=== PATIENT | female | born 1965 | race Caucasian/White ===

== ENCOUNTER 2017-04-30 09:20 | Inpatient (IN) ==
[2017-04-30] MEDS ORDERED: CeFAZolin Syr 2,000MG/20 ML 2,000 MG/20 ML SYRINGE IVPB ONE (09:36)
[2017-04-30] MEDS ORDERED: Plasma-Lyte A (PH 7.4) 1,000 ML IVC SCH (09:45)
--- NOTE | 2017-04-30 09:45 | History & Physical Report ---
Date of Encounter: 04/30/17 Time of Encounter: 09:45 24 Hour HP Update - Instructions Instructions: If the History and Physical is less than 30 days old and was completed prior to A.M. admission and or procedure and has NOT been updated on calendar day of procedure please complete this update prior to performing procedure. - Update Patient reports changes in Medical Condition: No Changes in examination, assessment, or condition: No Changes in Medication: No Preop tests/diagnostics Reviewed: Yes Surgery Remains Indicated: Yes Consent for Planned Operative Procedure(s) Verified: Yes - Pre-Operative Checklist Preoperative Checklist Indicated: No Prophylactic Antibiotic Ordered: Yes Is VTE Prophylaxis Indicated?: Yes
[2017-04-30] MEDS ORDERED: Vancomycin 1,500 MG in D5% in Water 250 ML IVPB ONE (10:04)
[2017-04-30] MEDS ORDERED: *HR* HYDROmorphone (PF) 1 MG/ML SYRINGE IVP PRN (10:08)
[2017-04-30] MEDS ORDERED: *HR* Promethazine 25 MG/ML VIAL IVP PRN (10:08)
[2017-04-30] MEDS ORDERED: *HR* Labetalol 20 MG/4 ML SYRINGE IVP PRN (10:08)
[2017-04-30] MEDS ORDERED: *HR* Midazolam HCl 2 MG/2 ML VIAL ONE (10:15)
[2017-04-30] MEDS ORDERED: *HR* FentaNYL (PF) 100 MCG/2 ML VIAL ONE ×2 (10:15→12:48)
[2017-04-30] MEDS ORDERED: *HR* Propofol 200 MG/20 ML VIAL IVP ONE ×2 (10:16→13:05)
[2017-04-30] MEDS ORDERED: Dexamethasone 4 MG/ML VIAL ONE (10:18)
[2017-04-30] MEDS ORDERED: Ondansetron 4 MG/2 ML VIAL ONE ×2 (10:18→13:36)
--- NOTE | 2017-04-30 10:56 | Anesthesia Evaluation PreOp ---
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) Other Medical History: Hepatic (stone), Diabetes Type II, GERD Anesthesia History: No Prior Anesthetic Complications, Past Anesthesia ( hysterectomy, csection x 2) Alcohol Use: none Drug use: none Medications and Allergies BuPROPion SR (12 HR) [Wellbutrin SR] 300 mg PO DAILY 04/30/17 [History] Cholecalciferol (Vitamin D3) [Vitamin D3] 10,000 unit PO QWEEK 04/30/17 [History ] Cyclobenzaprine HCl 10 mg PO PRN PRN 04/30/17 [History] Duloxetine HCl [Cymbalta] 60 mg PO DAILY 04/30/17 [History] Empagliflozin [Jardiance] 10 mg PO DAILY 04/30/17 [History] HydrOXYzine SYP [Atarax] 10 mg PO BID 04/30/17 [History] Meloxicam [Mobic] 15 mg PO DAILY 04/30/17 [History] Metformin HCl [Glucophage] 1,000 mg PO DAILY 04/30/17 [History] Omeprazole Magnesium [Prilosec Otc] 20 mg PO DAILY 04/30/17 [History] Pregabalin [Lyrica] 100 mg PO BID 04/30/17 [History] Tramadol HCl [Ultram] 50 mg PO TID PRN 04/30/17 [History] Valsartan [Diovan] 80 mg PO DAILY 04/30/17 [History] 3 Allergy/AdvReac Type Severity Reaction Status Date / Time morphine Allergy Vomiting Verified 04/26/17 14:01 Sulfa (Sulfonamide Allergy Swelling Verified 04/26/17 14:00 Antibiotics) of Lip/Tongue/Throat codeine AdvReac Vomiting Verified 04/26/17 14:00 surgical tape Allergy Redness of Uncoded 04/26/17 14:00 Skin - Meds/Allergy Pre-op Review Medications Reviewed: Yes Allergies Reviewed: Yes Beta Blockers on Current Med List: No Anesthesia Results - Labs Laboratory Tests 04/26/17 04/26/17 04/26/17 14:32 14:33 14:34 WBC Hgb Hct Plt Count PT 10.9 INR 1.0 APTT 30.3 Sodium 140 Potassium 4.2 Chloride 105 Carbon Dioxide 29 BUN 20 Creatinine 0.81 Est Mean Plasma Glucose 131 Hemoglobin A1c 6.2 H 04/26/17 14:34 WBC 6.7 Hgb 14.7 Hct 47.2 H Plt Count 307 PT INR APTT Sodium Potassium Chloride Carbon Dioxide BUN Creatinine Est Mean Plasma Glucose Hemoglobin A1c - Imaging EKG: report reviewed (NSR) Anesthesia Exam O2 Sat Height 1.52 m Height 1.52 m Weight 95.254 kg Weight 95.254 kg O2 Sat by Pulse Oximetry 96 Vital Signs Temp Pulse Resp BP Pulse Ox 98.1 F 82 18 109/68 96 04/30/17 09:51 04/30/17 09:51 04/30/17 09:51 04/30/17 09:51 04/30/17 09:51 Blood glucose: 123 Height: 1.52m Weight: 95kg NPO (# of Hours): >8 - HEENT Pupil (Motor): Pupils equal, EOMI Teeth: Normal Oral Opening: Greater than 3 - ELECTRICAL CONTROLS DESIGNER LOC: Oriented ELECTRICAL CONTROLS DESIGNER Motor: Normal RUE, Normal LUE, Normal RLE, Normal LLE, Normal Face ELECTRICAL CONTROLS DESIGNER Sensory: Normal: RUE, LUE, RLE, LLE, Face - Cardiac Rhythm: Regular - Pulmonary Breath Sounds: bilateral Clear Respiratory Effort: Symmetrical Anesthesia Assess/Plan ASA Score: 3 Modified Janette Scale for Level of Consciousness: Cooperative, oriented, and tranquil Anesthetic Plan: General (r/b/a discussed, questions answered, consent obtained) , Regional (Femoral nn block) Monitoring Plan: Standard Monitors Recovery Plan: PACU
--- NOTE | 2017-04-30 11:05 | Discharge Summary ---
Date of Encounter: 05/02/17 Time of Encounter: 06:50 - Discharge Diagnosis (1) Hypertension Priority: Secondary Status: Chronic Qualifiers: Hypertension type: unspecified Qualified Code(s): I10 - Essential (primary ) hypertension (2) Hyperlipidemia Priority: Secondary Status: Chronic Qualifiers: Hyperlipidemia type: unspecified Qualified Code(s): E78.5 - Hyperlipidemia , unspecified (3) Diabetes type 2, controlled Priority: Secondary Status: Acute Qualifiers: Diabetes mellitus complication status: without complication Diabetes mellitus terminal makeup operator insulin use: unspecified terminal makeup operator insulin use status Qualified Code(s): E11.9 - Type 2 diabetes mellitus without complications (4) Morbid obesity with BMI of 40.0-44.9, adult Priority: Secondary Status: Chronic (5) Arthritis of left knee Priority: Primary Status: Chronic (6) Status post total left knee replacement Priority: Primary Status: Acute - Discharge Medications Home Medications: BuPROPion SR (12 HR) [Wellbutrin SR] 300 mg PO DAILY 04/30/17 [History] Cholecalciferol (Vitamin D3) [Vitamin D3] 10,000 unit PO QWEEK 04/30/17 [History ] Cyclobenzaprine HCl 10 mg PO PRN PRN 04/30/17 [History] Duloxetine HCl [Cymbalta] 60 mg PO DAILY 04/30/17 [History] Empagliflozin [Jardiance] 10 mg PO DAILY 04/30/17 [History] HydrOXYzine SYP [Atarax] 10 mg PO BID 04/30/17 [History] Meloxicam [Mobic] 15 mg PO DAILY 04/30/17 [History] Metformin HCl [Glucophage] 1,000 mg PO DAILY 04/30/17 [History] Omeprazole Magnesium [Prilosec Otc] 20 mg PO DAILY 04/30/17 [History] Pregabalin [Lyrica] 100 mg PO BID 04/30/17 [History] Tramadol HCl [Ultram] 50 mg PO TID PRN 04/30/17 [History] Valsartan [Diovan] 80 mg PO DAILY 04/30/17 [History] Allergies/Adverse Reactions: 3 Allergy/AdvReac Type Severity Reaction Status Date / Time morphine Allergy Vomiting Verified 05/01/17 17:09 Sulfa (Sulfonamide Allergy Swelling Verified 05/01/17 17:09 Antibiotics) of Lip/Tongue/Throat codeine AdvReac Vomiting Verified 05/01/17 17:09 surgical tape Allergy Redness of Uncoded 04/26/17 14:00 Skin Primary care physician: Nikole Trujillo MD - Patient Status Disposition: Transfer Inpatient Rehab Fac Condition: Good Functional capacity at discharge: uses cane/walker Overall status at discharge: patient is progressing back to baseline - Discharge Instructions Follow Up With: Nikole Trujillo MD [Primary Care Provider] - - Hospital Course Hospital course: Ms. Riddle is a 51 year old female Status post left total knee replacement. The patient had an uneventful postoperative course. They received antibiotics and physical therapy and were discharged in stable condition. There will follow -up in the office in 2 weeks. - Time Spent with Patient Total time spent providing and/or coordinating discharge services:
[2017-04-30] MEDS ORDERED: ROPIVACAINE HCL/PF 0.5% 30 ML VIAL ONE (11:20)
[2017-04-30] MEDS ORDERED: Bupivacaine/Clonidine Syringe 1 EACH SYRINGE ONE (11:20)
[2017-04-30] MEDS ORDERED: Ethanol\\Acetic Acid\\Na Ace\\Ben 1,000 ML IRRIG.SOLN IR ONE (11:33)
--- NOTE | 2017-04-30 12:11 | Anesthesia Procedures ---
Date of Encounter: 04/30/17 Time of Encounter: 12:08 Procedures: Anesthesia - Nerve Block Procedure Date: 04/30/17 Time: 12:08 Surgical Procedure: left knee total robotic Checklist: Correct Patient Identifier, Correct procedure, History checked Correct side: Left Monitor Applied: BP, Pulse Oximetry Sedation: Versed (mg): 2 Sedation: Fentanyl (mcg): 100 Indication: Post Op Analgesia Block Type: Femoral, Other (ipack) Catheter placed: Yes Sterile Technique: Yes Ultrasound used: Yes Anatomy identified: Yes Visual spread of Local: Yes Neuro Stimulation: No Nerve Stimulator Range: 0.2 - 0.4 mA Blood on Needle Aspiration: No Smooth Injection of Local: Yes Pain with Injection of Local: No Prep: Chlorhexadine Needle: 22 x 50 mm Stimuplex Local: 0.25% Bupivicaine w/Clonidine 20 mcg/cc (40ml ), Ropivacaine (30) Volume (cc): 70 Number of Attempts: 1 Complications: None/effective block Vitals: vss, block per request of surgeon.
--- NOTE | 2017-04-30 13:09 | Orthopedic Operative Note ---
Date of procedure: 04/30/17 Pre-op diagnosis: Left knee arthritis Post-op diagnosis: same Procedure: Procedure: Left Total knee replacement Estimated blood loss: 400 cc Hardware: Metal and polyethylene replacement. Arthrex Femur: 4 Tibia: 3 PS insert: 14 Patella: 34 Exam Under anesthesia: Full flexion and extension no instability Procedural Notes: Grade 4 arthritic changes medial compartment grade 3 arthritic changes patellofemoral joint. Operative procedure: The patient was brought to the operating room and placed on the operating room table. After general anesthesia was administered the operative knee was examined. Findings were noted in the exam under anesthesia. The operative extremity was prepped and draped in sterile surgical fashion. The patient received IV antibiotics prior to skin incision. A standard midline incision was made centered over the patella. The incision was made through the skin and subcutaneous tissue. A medial parapatellar tendon approach was performed. Care was taken to preserve tissue along the medial aspect of the patella. And to protect the patella tendon. The deep MCL was released off the medial tibia. The infra patella fat pad was excised. Knee was brought into flexion. Patient noted to have grade 4 arthritic changes medial compartment grade 3 arthritic changes patellofemoral joint. The entry hole was made for the intramedullary femoral guide. The guide was seated in 6 degrees of valgus. Anterior cut was made followed by the distal cut. The ACL the PCL the medial and the lateral menisci were excised. The tibia was subluxed forward. The entry hole was made for the intramedullary tibial guide. Guide was seated to resect 2 mm off the more abnormal side. The knee was brought into flexion the distal femur was sized to a 4. The femoral guide was seated, the anterior cut was made followed by the posterior condylar cut, followed by the chamfer cuts. The finishing guide was seated the box cut was made and the lug holes were drilled. The tibia was sized to a 3, the tibial tray was seated and prepared with the large drill followed by the fin cutter. Trial reduction revealed full extension no varus valgus instability with the appropriate 14 PS Barbara. The patella was everted and cut was made at the level of the insertion of the quadriceps and patella tendon. The patella was sized to a 34 the guide was seated and the lug holes are drilled. Trial reduction revealed excellent patella tracking. All trial components were removed all bony surfaces were irrigated. The tibia was cemented first followed by the femur. The 14 PS Barbara was seated and the knee was brought into full extension. The patella was cemented and held in place with the patellar holding clamp. After the cement had hardened, the knee sat for 2 minutes with a Betadine saline solution. The knee was then irrigated out with 2 L of pulse irrigation. The extensor mechanism was closed with #2 FiberWire suture and #2 PDS suture. The subcutaneous tissue was then irrigated and closed deep with #1 PDS suture superficially with 0 PDS suture and skin was closed with skin yolie. The patient was then placed in a sterile dressing and a postoperative brace extubated and transferred to recovery room in stable condition. Anesthesia: CORINNE Surgeon: Oliver Sellers Condition: stable Disposition: PACU
[2017-04-30] MEDS ORDERED: *HR* HYDROmorphone 2 MG/ML SYRINGE ONE ×2 (13:26→13:30)
[2017-04-30] MEDS ORDERED: Ipratropium/Albuterol Neb 3 ML ONE (13:27)
[2017-04-30] MEDS ORDERED: *HR* Meperidine 50 MG/ML SYRINGE ONE (13:30)
[2017-04-30] MEDS ORDERED: Ketorolac 30 MG/ML VIAL ONE (13:41)
[2017-04-30] MEDS ORDERED: Acetaminophen IV 1,000 MG/100 ML INFUS..BTL ONE (13:42)
[2017-04-30] MEDS ORDERED: *HR* Promethazine 25 MG/ML VIAL ONE (13:43)
[2017-04-30] MEDS ORDERED: Scopolamine Patch 1.5 MG PATCH.TD72 ONE (13:49)
[2017-04-30] MEDS ORDERED: *HR* Meperidine 25 MG/ML SYRINGE ONE (13:58)
[2017-04-30] MEDS ORDERED: Ringers Solution, Lactated 1,000 ML ONE (14:03)
[2017-04-30 14:19] LABS: Hematocrit 35.9 % (35.3-44.9)
[2017-04-30 14:21] LABS: Hemoglobin 11.5 g/dL (11.5-15.4)
--- NOTE | 2017-04-30 14:50 | Anesthesia Evaluation Post Op ---
Date of Encounter: 04/30/17 Time of Encounter: 14:47 - Vital Signs Vital Signs: Vital Signs/O2 Sat/Glucose, Most Current Temp Pulse Resp BP Pulse Ox 04/30/17 14:31 98 17 126/77 97 04/30/17 14:21 98.7 F 90 14 115/73 96 04/30/17 14:11 86 16 100/72 97 04/30/17 14:01 90 16 115/68 96 04/30/17 13:51 99.6 F 92 14 114/78 97 04/30/17 13:41 95 16 131/89 98 04/30/17 13:31 101 15 131/92 97 04/30/17 13:21 97.0 F L 108 18 139/90 98 04/30/17 11:37 76 16 112/86 99 - Lungs Lungs: Clear Ascult./Percussion - Airway Airway: Non-obstructed - Cardiovascular Regular Rate, Baseline Rhythm - Mental Status Mental Status: Alert & Oriented, Answers Appropriately - Pain Pain Scale: 3 Pain Scale used: Numeric (1 - 10) - Nausea Vomiting Nausea Vomiting: Not Present - Hydration Hydration: Tolerates oral liquids, Ice chips Notes: 04/30/17 14:49 continuous pulse ox requested and ordered for , PACU called report and confirmed - Discharge PostOp Status: Transfer Patient to floor
[2017-04-30] MEDS ORDERED: D5% in Water 1,000 ML IVC PRN (14:57)
[2017-04-30] MEDS ORDERED: Dextrose Gel 15 GM PO PRN ×2 (14:57)
[2017-04-30] MEDS ORDERED: Temazepam 15 MG CAPSULE PO PRN (14:57)
[2017-04-30] MEDS ORDERED: Sennosides 8.6 MG TABLET PO PRN (14:57)
[2017-04-30] MEDS ORDERED: *HR* OxyCODONE Immed Rel 5 MG TABLET PO PRN (14:57)
[2017-04-30] MEDS ORDERED: Naloxone 0.4 MG/ML INJ IVP PRN (14:57)
[2017-04-30] MEDS ORDERED: *HR* Dextrose 50 % in Water (Syg) 50 ML SYRINGE IVP PRN (14:57)
[2017-04-30] MEDS ORDERED: Naloxone 0.4 MG/ML INJ ONE (15:12)
[2017-04-30] MEDS: CeFAZolin Premix DUPLEX 2,000 MG/50 ML BAG IVPB SCH ×2 (16:22→23:05)
[2017-04-30] MEDS: Ondansetron 4 MG/2 ML VIAL IVP PRN (16:22)
[2017-04-30] MEDS: *HR* Enoxaparin 30 MG/0.3 ML SYRINGE SQ SCH (16:24)
[2017-04-30] MEDS ORDERED: Ketorolac 30 MG/ML VIAL IVP PRN (16:35)
[2017-04-30] MEDS ORDERED: Acetaminophen IV 1,000 MG/100 ML INFUS..BTL IVPB ONE (16:36)
[2017-04-30] MEDS: Insulin LISPRO 300 UNITS/3 ML VIAL SQ SCH ×3 (17:33→21:51)
[2017-04-30] MEDS: Ringers Solution, Lactated 1,000 ML IVC SCH ×2 (17:47→22:51)
[2017-04-30] MEDS ORDERED: *HR* Enoxaparin 30 MG/0.3 ML SYRINGE SQ SCH (18:00)
[2017-04-30] MEDS ORDERED: MOM Conc 10 ML UD.LIQ PO PRN (21:00)
[2017-04-30] MEDS: HydrOXYzine SYP 10 MG/5 ML UDC PO SCH (21:50)
[2017-04-30] MEDS: Pregabalin 50 MG CAPSULE PO SCH (21:50)
[2017-04-30] MEDS: *HR* OxyCODONE Immed Rel 5 MG TABLET PO PRN (21:50)
[2017-05-01] MEDS: *HR* OxyCODONE Immed Rel 5 MG TABLET PO PRN ×4 (05:39→20:59)
[2017-05-01] MEDS: *HR* Enoxaparin 30 MG/0.3 ML SYRINGE SQ SCH ×2 (05:39→16:52)
[2017-05-01 07:07] LABS: Hematocrit 33.8 % (35.3-44.9); Hemoglobin 10.6 g/dL (11.5-15.4)
[2017-05-01 07:21] LABS: BUN/Creatinine Ratio 19 (6-26); Blood Urea Nitrogen 13 mg/dL (7-20); Calcium 8.4 mg/dL (8.6-10.8); Carbon Dioxide 28 mEq/L (19-29); Chloride 107 mEq/L (98-109); Glucose 120 mg/dL (70-99); Osmolality,Calculated 293 (280-300); Potassium 4.5 mEq/L (3.5-4.5); Sodium 141 mEq/L (136-145); eGFR For African Americans > 60 (> 60); eGFR For Non-African Americans > 60 (> 60)
[2017-05-01] MEDS: Valsartan 80 MG TABLET PO SCH (09:02)
[2017-05-01] MEDS: BuPROPion SR (12 HR) 150 MG TABLET PO SCH (09:02)
[2017-05-01] MEDS: *HR* Metformin 500 MG TABLET PO SCH (09:02)
[2017-05-01] MEDS: Cholecalciferol (D-3) 1,000 UNIT TABLET PO SCH (09:02)
[2017-05-01] MEDS: Pregabalin 50 MG CAPSULE PO SCH ×2 (09:02→21:00)
[2017-05-01] MEDS: HydrOXYzine SYP 10 MG/5 ML UDC PO SCH ×2 (09:03→21:00)
[2017-05-01] MEDS: Insulin LISPRO 300 UNITS/3 ML VIAL SQ SCH ×4 (09:03→21:01)
[2017-05-01] MEDS: (Empagliflozin [Jardiance] 10 MG) PO SCH (09:03)
[2017-05-01] MEDS: *HR* HYDROmorphone (PF) 1 MG/ML SYRINGE IVP PRN ×3 (09:03→23:27)
--- NOTE | 2017-05-01 14:37 | Orthopedics Progress Note ---
Date of Encounter: 05/01/17 Time of Encounter: 14:36 Subjective Principal diagnosis: Left knee arthritis Interval history: Patient is comfortable with minimal pain Left knee dressings are clean dry and intact with mild spotting Bilateral calves are soft and nontender Grossly neurovascularly intact Postop day #1 status left knee total arthroplasty, stable Continue DVT prophylaxis Continue OT/PT Objective Vital signs: Vital Signs Temp Pulse Resp BP Pulse Ox 05/01/17 11:49 98.9 F 102 16 112/69 97 05/01/17 06:40 98.5 F 79 16 104/67 98 04/30/17 23:47 98.3 F 74 16 100/65 99 04/30/17 22:12 127/81 04/30/17 21:13 97.8 F 92 18 121/80 98 04/30/17 18:30 87 16 110/78 98 04/30/17 18:15 90 16 143/98 99 04/30/17 18:00 97 14 93 04/30/17 17:00 86 14 129/86 86 04/30/17 16:34 98.9 F 97 14 118/84 94 04/30/17 16:31 93 04/30/17 16:15 98.7 F 97 14 129/83 95 04/30/17 16:00 98.7 F 91 14 137/85 94 04/30/17 15:45 98.9 F 92 14 132/86 95 04/30/17 15:17 98.4 F 96 14 127/92 97 04/30/17 15:00 98.4 F 84 10 100/70 86 04/30/17 14:41 98.7 F 99 16 128/85 96 Intake and Output 04/30/17 05/01/17 05/01/17 23:59 07:59 15:59 Intake Total 1150 / 1150 240 / 240 900 / 900 Output Total 350 / 350 500 / 500 450 / 450 Balance 800 / 800 -260 / -260 450 / 450 Intake: IV Fluids 1150 / 1150 Lactated Ringers 1,000 ML @ 75 1000 / 1000 mls/hr IVC .[id number] ESA Rx#: [id number] Ofirmev 1,000 mg/100 ml 1,000 100 / 100 mg In 100 ml @ 400 mls/hr IVPB Q6HR ONE Rx#:[id number] Ancef Premix DUPLEX 2,000 mg In 50 / 50 50 ml @ 100 mls/hr IVPB Q8HR ESA Rx#:[id number] Oral 240 / 240 900 / 900 Output: Urine 350 / 350 500 / 500 450 / 450 Other: Meal Lunch Percent of Meal Consumed 75% Blood Glucose* 168 104 146 - Labs CBC & BMP: 05/01/17 06:19 05/01/17 06:19 Labs: Abnormal lab results Hgb 10.6 g/dL (11.5-15.4) L 05/01/17 06:19 Hct 33.8 % (35.3-44.9) L 05/01/17 06:19 Glucose 120 mg/dL (70-99) H 05/01/17 06:19 POC Glucose 104 (58-89) H 05/01/17 07:44 Calcium 8.4 mg/dL (8.6-10.8) L 05/01/17 06:19 - VTE Documentation of Mechanical Device: Venous foot pump, device Consult Discharge Plan - Plan Referrals: Nikole Trujillo MD [Primary Care Provider] -
[2017-05-01] MEDS: Ondansetron 4 MG/2 ML VIAL IVP PRN (16:58)
[2017-05-02] MEDS: *HR* OxyCODONE Immed Rel 5 MG TABLET PO PRN ×4 (01:17→14:21)
[2017-05-02] MEDS: *HR* HYDROmorphone (PF) 1 MG/ML SYRINGE IVP PRN (03:44)
[2017-05-02] MEDS: *HR* Enoxaparin 30 MG/0.3 ML SYRINGE SQ SCH (05:56)
--- NOTE | 2017-05-02 06:51 | Orthopedics Progress Note ---
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 Afebrile vital signs stable. Operative extremity: Neurovascularly intact Dressing clean dry and intact Calves nontender Assessment and plan: Continue with postoperative care Discharge today Objective Vital signs: Vital Signs Temp Pulse Resp BP Pulse Ox 05/02/17 03:51 99.2 F 110 20 155/79 94 05/02/17 00:33 98.2 F 89 18 121/81 97 05/01/17 20:03 98.5 F 98 18 130/80 97 05/01/17 19:10 130/78 05/01/17 11:49 98.9 F 102 16 112/69 97 Intake and Output 05/01/17 05/01/17 05/02/17 15:59 23:59 07:59 Intake Total 900 / 900 60 / 60 60 / 60 Output Total 450 / 450 500 / 500 Balance 450 / 450 -440 / -440 60 / 60 Intake: Oral 900 / 900 60 / 60 60 / 60 Output: Urine 450 / 450 500 / 500 Other: Meal Lunch Percent of Meal Consumed 75% Blood Glucose* 146 208 - Labs CBC & BMP: 05/01/17 06:19 05/01/17 06:19 Labs: Abnormal lab results Hgb 10.6 g/dL (11.5-15.4) L 05/01/17 06:19 Hct 33.8 % (35.3-44.9) L 05/01/17 06:19 Glucose 120 mg/dL (70-99) H 05/01/17 06:19 POC Glucose 208 (58-89) H 05/01/17 20:18 Calcium 8.4 mg/dL (8.6-10.8) L 05/01/17 06:19 - VTE Documentation of Mechanical Device: Venous foot pump, device Consult Discharge Plan - Plan Referrals: Nikole Trujillo MD [Primary Care Provider] -
[2017-05-02 06:57] LABS: Hematocrit 34.4 % (35.3-44.9)
[2017-05-02 07:09] LABS: BUN/Creatinine Ratio 12 (6-26); Blood Urea Nitrogen 8 mg/dL (7-20); Calcium 8.4 mg/dL (8.6-10.8); Carbon Dioxide 29 mEq/L (19-29); Chloride 103 mEq/L (98-109); Glucose 150 mg/dL (70-99); Osmolality,Calculated 287 (280-300); Potassium 4.1 mEq/L (3.5-4.5); Sodium 138 mEq/L (136-145); eGFR For African Americans > 60 (> 60); eGFR For Non-African Americans > 60 (> 60)
[2017-05-02] MEDS: HydrOXYzine SYP 10 MG/5 ML UDC PO SCH (09:07)
[2017-05-02] MEDS: BuPROPion SR (12 HR) 150 MG TABLET PO SCH (09:07)
[2017-05-02] MEDS: Insulin LISPRO 300 UNITS/3 ML VIAL SQ SCH ×2 (09:07→12:52)
[2017-05-02] MEDS: Valsartan 80 MG TABLET PO SCH (09:07)
[2017-05-02] MEDS: Cholecalciferol (D-3) 1,000 UNIT TABLET PO SCH (09:07)
[2017-05-02] MEDS: *HR* Metformin 500 MG TABLET PO SCH (09:07)
[2017-05-02] MEDS: Pregabalin 50 MG CAPSULE PO SCH (09:08)
[2017-05-02] MEDS: (Empagliflozin [Jardiance] 10 MG) PO SCH (09:09)
[2017-05-02 11:35] VITALS: BP 124/79
--- NOTE | 2017-05-02 12:08 | Physician Discharge Referral ---
ExtendedCare Referral Info Transfer To: [facility] Provider in Charge: Dr Oliver Sellers - Diagnosis (1) Hypertension Priority: Secondary Status: Chronic (2) Hyperlipidemia Priority: Secondary Status: Chronic (3) Diabetes type 2, controlled Priority: Secondary Status: Acute (4) Morbid obesity with BMI of 40.0-44.9, adult Priority: Secondary Status: Chronic (5) Arthritis of left knee Priority: Primary Status: Chronic (6) Status post total left knee replacement Priority: Primary Status: Acute Expected Duration of Placement: less than 30 days Prognosis: Good Aware of Diagnosis: Patient Aware of Prognosis: Patient - Transfer Medications Home Medications: BuPROPion SR (12 HR) [Wellbutrin SR] 300 mg PO DAILY 04/30/17 [History] Cholecalciferol (Vitamin D3) [Vitamin D3] 10,000 unit PO QWEEK 04/30/17 [History ] Cyclobenzaprine HCl 10 mg PO PRN PRN 04/30/17 [History] Duloxetine HCl [Cymbalta] 60 mg PO DAILY 04/30/17 [History] Empagliflozin [Jardiance] 10 mg PO DAILY 04/30/17 [History] HydrOXYzine SYP [Atarax] 10 mg PO BID 04/30/17 [History] Meloxicam [Mobic] 15 mg PO DAILY 04/30/17 [History] Metformin HCl [Glucophage] 1,000 mg PO DAILY 04/30/17 [History] Omeprazole Magnesium [Prilosec Otc] 20 mg PO DAILY 04/30/17 [History] Pregabalin [Lyrica] 100 mg PO BID 04/30/17 [History] Tramadol HCl [Ultram] 50 mg PO TID PRN 04/30/17 [History] Valsartan [Diovan] 80 mg PO DAILY 04/30/17 [History] Allergies/Adverse Reactions: 3 Allergy/AdvReac Type Severity Reaction Status Date / Time morphine Allergy Vomiting Verified 05/01/17 17:09 Sulfa (Sulfonamide Allergy Swelling Verified 05/01/17 17:09 Antibiotics) of Lip/Tongue/Throat codeine AdvReac Vomiting Verified 05/01/17 17:09 surgical tape Allergy Redness of Uncoded 04/26/17 14:00 Skin - Respiratory Orders Smoking Cessation: Smoking cessation has been advised. For more information, call the [place] Tobacco Quit Line at 6-660-ROFU-NOW. - Ancillary Orders May use pressure relief devices daily prn, May go on MAHIN w/family/respon constitution party w /meds at nurse discretion PRN, May consult with Dentist, Quality Control Supervisor, Powered Bridge Specialist PRN - Mobility Orders Chair, Ambulate - Rehabiliation Orders Rehab Potential: Good Rehab Orders: Evaluation for Physical Therapy, Evaluation for Occupational Therapy Other: Total Knee replacement Precautions x 6 weeks Apply cold therapy wrap 3-6x/day for 20 minutes at a time. Encourage ambulation throughout the day and incentive spirometer 10x/hour. Elevate affected extremity above heart as tolerated. Brace: Wear knee immobilizer at night x 2 weeks. - Treatments Skin tear care topically daily PRN per policy List/Other: Opsite placed. Keep dressing intact until first follow up appointment. If > 50% saturated, notify office, remove dressing and place appropriate dressing back in place. Leave Zipline intact. Opsite dressing is water resistant, not water- proof. OK to shower, but do not get dressing wet. - Diet Orders Regular CERTIFICATION: I certify that the transfer of the above named patient to an Extended Care Facility is necessary for the continuing treatment of the diagnosis listed. The above information is true and accurate reflection of patient's current condition. Confidential - Redisclosure prohibited without a patient's written consent.
== END 2017-05-02 16:00 | DRG 302 ==
LOC: SAMDAY 09:20 → 3NENU 14:55
PROVIDERS: ADMIT Orthopaedic Surgery; ATTEND Orthopaedic Surgery